=== PATIENT | male | born 2000 | race Caucasian/White ===

== ENCOUNTER 2018-07-17 01:59 | Emergency (ER) | payer MEDICAID ==
[~2018-07-17] VITALS: Ht 180.3 cm; Wt 68.2 kg
[~2018-07-17 01:59] MED LIST: NO HOME MEDICATIONS
[2018-07-17 02:05] VITALS: TEMP 96.7
[2018-07-17 02:49] LABS: BASO % 0.5 % (0.0-2.0); EOS # 0.1 (0.0-0.7); EOS % 1.3 % (0-4.0); GRAN # 4.3 (1.4-6.5); GRAN % 58.2 % (42.2-75.2); HEMATOCRIT 41.2 % (36.0-47.0); HEMOGLOBIN 14.8 g/dl (12.5-16.1); LYMPH # 2.4 (1.2-3.4); LYMPH % 32.5 % (20.0-51.0); MEAN CELL VOLUME 90 fl (80.0-95.0); MEAN CORPUSCULAR HEMOGLOBIN 32 pg (26.0-32.0); MEAN CORPUSCULAR HGB CONC 36 g/dl (33.0-37.0); MEAN PLATELET VOLUME 9.8 fl (7.4-10.4); MONO # 0.5 (0.1-0.6); MONO % 7.2 % (1.7-9.3); PLATELET COUNT 228 K/mm3 (130-400); RED BLOOD COUNT 4.57 M/mm3 (4.20-5.60); REDCELL DISTRIBUTION WIDTH-CV 11.2 % (11.5-14.5)
[2018-07-17 03:01] LABS: ALANINE AMINOTRANSFERASE 26 U/L (21-72); ALBUMIN 4.6 gm/dL (3.5-5.0); ALKALINE PHOSPHATASE 46 U/L (50-136); ANION GAP 9 mmol/L (7-16); AST,SGOT 20 U/L (15-37); BILIRUBIN,TOTAL 0.9 mg/dL (0.0-1.0); BLOOD UREA NITROGEN 24 mg/dL (9-20); CALCIUM 9.7 mg/dL (8.4-10.2); CARBON DIOXIDE 24 mmol/L (22-30); CHLORIDE 107 mmol/L (98-107); GLUCOSE 117 mg/dL (74-106); LIPASE 37 U/L (23-300); POTASSIUM 3.5 mmol/L (3.4-5.0); SODIUM 140 mmol/L (137-145)
[2018-07-17 03:02] LABS: C-REACTIVE PROTEIN < 0.5 mg/dL (0.0-0.9)
[2018-07-17 03:39] LABS: COLLECTION METHOD CLEAN CATCH
[2018-07-17 03:46] LABS: MUCOUS Present /lpf; PH 5 (5-8); SQUAMOUS EPITHELIAL None Seen /hpf; URINE APPEARANCE Hazy; URINE BACTERIA None Seen /hpf; URINE BILIRUBIN Negative (NEGATIVE); URINE BLOOD Negative (NEGATIVE); URINE COLOR Yellow; URINE GLUCOSE Negative (NEGATIVE); URINE KETONE 1+ (NEGATIVE); URINE LEUKOCYTE ESTERASE Negative (NEGATIVE); URINE NITRATE Negative (NEGATIVE); URINE PROTEIN(semi-quant) 1+ (NEGATIVE); URINE RBC 0-2 /hpf; URINE UROBILINOGEN Negative (NEGATIVE)
[2018-07-17] MEDS ORDERED: MACROBID 1100 MG/CAP PO (04:16)
[2018-07-17 04:30] VITALS: BP 130/67; PULSE 88
== END 2018-07-17 04:33 | disposition home or self-care (01) ==
LOC: COL.ER 01:59
PROVIDERS: Emergency Medicine
DX: N39.0 Urinary tract infection, site not specified (principal)
CPT/HCPCS: J2405; J7030

== ENCOUNTER → 2020-05-16 | Outpatient (CLI) | payer OTHER ==
[~2020-05-16] MED LIST changes: +MACROBID 1100 MG/CAP PO
[2020-05-16 17:10] VITALS: BP 115/69; PULSE 85
== END ==
LOC: COL.ER 15:49
DX: Z48.02 Encounter for removal of sutures (principal)

== ENCOUNTER 2021-10-13 19:23 | Emergency (ER) | payer SELFPAY ==
[~2021-10-13] VITALS: Ht 180.3 cm; Wt 59.1 kg
[2021-10-13 19:27] VITALS: BP 151/81; PULSE 88; TEMP 97.8
== END 2021-10-13 19:58 | disposition home or self-care (01) ==
LOC: COL.ER 19:23
DX: S61.210A Laceration without foreign body of right index finger without damage to nail, initial encounter (principal); W26.8XXA Contact with other sharp object(s), not elsewhere classified, initial encounter; Y92.59 Other trade areas as the place of occurrence of the external cause; Y99.0 Civilian activity done for income or pay